=== PATIENT | female | born 1960 | race Caucasian/White ===

== ENCOUNTER 2022-08-28 07:44 | Outpatient (CLI) | payer OTHER, SELFPAY ==
--- NOTE | ~2022-08-28 | DEXA_ITS ---
Bone Density Report Name: SATINDER COSTELLO Age: 61 Sex: Female Ethnicity: White Date of : 1960 Indication: postmenopausal; screening for osteoporosis; Referring Provider: RYAN PARKER Study: Bone densitometry was performed. Exam Date: August 28, 2022 Accession number: [id number] Bone Density: Region BMD T-score Z-score Classification AP Spine(L1-L4) 0.933 -1.0 0.3 Normal Femoral Neck (Left) 0.723 -1.1 0.1 Osteopenia Total Hip (Left) 0.968 0.2 1.1 Normal Femoral Neck (Right) 0.727 -1.1 0.2 Osteopenia Total Hip (Right) 0.962 0.2 1.1 Normal Total Hip Mean 0.965 0.2 1.1 Normal World Health Organization criteria for BMD impression classify patients as: Normal (T-score at or above -1.0), Osteopenia (T-score between -1.0 and -2.5), or Osteoporosis (T-score at or below -2.5). 10-year Fracture Risk(1): Major Osteoporotic Fracture 6.4% Hip Fracture 0.4% Reported Risk Factors: [place] (), Neck BMD=0.723, BMI=38.4 (1) FRAX(R) Version 3.08. Fracture probability calculated for an untreated patient. Fracture probability may be lower if the patient has received treatment. Clinical Information Provided by Patient: Patient maximum height was 62.5 Menopause Age: 52 No regular weight bearing exercise Onset of menses at age 12 Number of children 2 Impression: The patient has low bone mass, based on the Left Femoral Neck T-score. The patient has an estimated ten-year risk of hip fracture of 0.4% and an estimated ten-year risk of major fracture of 6.4%, based on the WHO FRAX algorithm. Discussion: BONE DENSITY IS LOW AT ONE OR MORE SKELETAL SITES. This patient's lowest T-score is low at one or more skeletal sites. It meets the World Health Organization's (WHO) criteria for ?low bone mass? (T-score between -1.0 and -2.5). The patient's 10-year risk of fracture as calculated by FRAX is less than the threshold where pharmacological therapy is recommended by the National Osteoporosis Foundation (NOF). However, all treatment decisions require clinical judgment and consideration of individual patient factors, including patient preferences, comorbidities, previous drug use, risk factors not captured in the FRAX model (e.g., frailty, falls, vitamin D deficiency, increased bone turnover, interval significant decline in bone density) and possible under or overestimation of fracture risk by FRAX. The patient should follow a healthful lifestyle (good nutrition with adequate calcium and vitamin D, and appropriate weight-bearing exercise). Follow-Up: Consider repeating this study in 2 to 3 years to reassess this patient's status, or sooner if there is some new clinical indication. Reported by: GODFREY on 08/28/2022 8:18:00 AM. Reviewed, d
--- NOTE | ~2022-08-28 | MM_ITS ---
EXAMINATION: MM screening mary BI w [facility] HISTORY: Screening mammogram TECHNIQUE: Craniocaudal and mediolateral oblique 3-D tomosynthesis images were obtained and synthetic 2-D images were generated. CAD analysis was submitted and interpreted. COMPARISON: 07/25/2017 bilateral screening mammogram 06/14/2015 diagnostic right mammogram 06/05/2015 bilateral screening mammogram BREAST PARENCHYMAL COMPOSITION: There are scattered areas of fibroglandular density. FINDINGS: There is no evidence of suspicious mass, calcification, or architectural distortion to sugg est malignancy in either breast. There has been no suspicious interval change. IMPRESSION: 1. No mammographic evidence of malignancy. 2. Recommend routine screening mammography in one year. BI-RADS Category 1: Negative Reviewed, dictated and finalized at location A. AL ERECTOR
== END 2022-08-28 07:45 | disposition home or self-care (01) ==
LOC: ANHIMG 07:47
PROVIDERS: PCP Family Medicine; Visit Provider Physician Assistant
DX: Z12.31 Encounter for screening mammogram for malignant neoplasm of breast (principal); Z78.0 Asymptomatic menopausal state; M85.852 Other specified disorders of bone density and structure, left thigh; M85.851 Other specified disorders of bone density and structure, right thigh
CPT/HCPCS: 77063; 77067; 77080

== ENCOUNTER 2023-06-13 03:08 | Day surgery (SDC) | payer OTHER, SELFPAY ==
[2023-05-28 12:37] VITALS: BMI 35.5
--- NOTE | 2023-06-11 10:15 | SUR.PREOP ---
Patient called regarding upcoming procedure. Reviewed preop instructions, appointment times, and procedure prep.
[2023-06-13 06:16] VITALS: BP 156/88; PULSE 88; RESP 20; TEMP 36.1; O2SAT 97
[2023-06-13] MEDS: LACTATED RINGERS 1,000 ML 150 ML IV CONT (06:26)
--- NOTE | 2023-06-13 07:28 | WPDANESEPPF ---
Anes - Initial Pre Proc Eval Procedure: Operation Date: 06/13/23 07:30 Proposed Procedures p Colonoscopy - Suresh Sin MD Date/Time: 06/13/23 07:28 Surgeon: Suresh Sin MD Pre Op Diagnosis: Other fecal abnormalities; + cologuard Patient Data Age: 62 Gender: F Height: 1.6 m Weight: 90 kg Last Vital Signs Temp 97 F L 06/13/23 06:16 Pulse 88 06/13/23 06:16 Resp 20 06/13/23 06:16 BP 156/88 H 06/13/23 06:16 Pulse Ox 97 06/13/23 06:16 O2 Del Method Room Air 06/13/23 06:16 Allergies Allergy/AdvReac Type Severity Reaction Status Date / Time nickel Allergy Unknown RASH Verified 06/13/23 06:15 clarithromycin AdvReac Intermediate Diarrhea Verified 06/13/23 06:15 Home Medications Medication Instructions Recorded Confirmed Type alprazolam 0.5 mg tablet 0.5 mg PO BID PRN anxiety #30 tabs 04/26/22 05/28/23 Rx lisinopril 20 See Rx Instructions .Route 10/01/22 05/28/23 Rx mg-hydrochlorothiazide 12.5 mg .COMPLEX #90 tabs tablet cyclobenzaprine 5 mg tablet 5 mg PO TID PRN muscle spasm #30 12/10/22 05/28/23 Rx tabs fluticasone propionate 50 2 spray intranasal DAILY #48 mL 12/10/22 05/28/23 Rx mcg/actuation nasal spray,suspension amlodipine 2.5 mg tablet 2.5 mg PO DAILY #90 tabs 01/08/23 05/28/23 Rx escitalopram oxalate 5 mg tablet 5 mg PO DAILY #90 tabs 01/10/23 05/28/23 Rx (Lexapro) pantoprazole 40 mg tablet,delayed See Rx Instructions .Route 02/27/23 05/28/23 Rx release .COMPLEX #90 tabs calcium-vitamin D3-vitamin K 500 1 tablet PO DAILY 05/28/23 05/28/23 History mg-100 unit-40 mcg chewable tablet meloxicam 15 mg tablet 15 mg PO DAILY PRN Pain 05/28/23 05/28/23 History multivitamin k-[id number]-[id number] 1 tablet PO DAILY 05/28/23 05/28/23 History fumarate 18 mg-vitamin K 25 mcg tablet naltrexone 8 mg-bupropion 90 mg 2 tablet PO BID 05/28/23 05/28/23 History tablet,extended release (Contrave) omega-3 fatty acids-vitamin E 1 cap PO DAILY 05/28/23 05/28/23 History 1,000 mg capsule potassium 99 mg tablet 99 mg PO DAILY 05/28/23 05/28/23 History naltrexone 8 mg-bupropion 90 mg See Rx Instructions .Route 06/02/23 Rx tablet,extended release (Contrave) .COMPLEX #120 tabs Patient hx anesthesia problems: none Family hx anesthesia problems: none Results Review: All pre-operative results and documents have been reviewed as part of the pre-operative evaluation. [facility] Past Medical History Medical History (Updated 04/21/23 @ 16:15 by Jessica De La O PA-C) Anxiety Depression Hypertension Positive colorectal cancer screening using Cologuard test Family History Family History Mother Family history of hypercholesterolemia Hypertension Cerebrovascular accident Family history of malignant neoplasm Social History Social History Smoking status: Never smoker Second hand tobacco smoke exposure: No Alcohol intake: never Substance use: never Substance use type: does not use Lack of Transportation: No Lack of Food: Never True Current Housing: I Have Housing Concerned About Future Housing: No Difficulty Paying Gas/Electric Bills: No Difficulty Paying for Meds: No Currently Unemployed: No Education: Associate Degree Difficulty w/ Childcare or Family Care: No Living arrangements: with family Occupation/Education: occupation Gender identity (if verbalized by the patient): Female Spiritual care concerns: No Agree to blood products: Yes Anes - Eval Final PreProcedure Day of Procedure 06/13/23 07:28 Patient weight: obese Heart: regular rate and rhythm Lungs: clear to auscultation Airway: Mallampati scale class II Neurological: alert and oriented Last oral intake: >/= 8 hours ASA classification: III Emergent: no Anesthetic plan: proceed Anesthesia type and monitori
--- NOTE | 2023-06-13 07:36 | PM.HPGS ---
History of Present Illness History of Present Illness Consent: Risks, benefits, and alternatives have been discussed and questions answered. Patient agrees to proceed with procedure. Chief complaint: Other fecal abnormalities; + cologuard Narrative: Sherrell Carpio is a 62 year old female here for positive cologuard, last colonoscopy 10 years ago Review of Systems Constitutional: Constitutional: Denies headache(s) and Denies weakness Eyes: Eyes: Denies blurry vision ENT: Reports Normal hearing present, Denies headache(s) and Denies neck pain Cardiovascular: Cardiovascular: Denies chest pain and Denies dyspnea Respiratory: Respiratory: Denies dyspnea Gastrointestinal: Gastrointestinal: Reports no additional gastrointestinal complaints Genitourinary: Genitourinary: Denies dysuria Musculoskeletal: Musculoskeletal: Denies neck pain Integumentary/Breasts: Skin/Breast: Denies dry skin Neurologic: Reports Normal hearing present, Denies headache(s) and Denies weakness Psychiatric: Psychiatric: Denies anxiety Endocrine: Endocrine: Denies change in body appearance Hematologic/Lymphatic: Hematologic/Lymphatic: Denies easy bleeding Allergic/Immunologic: Allergic/Immunologic: Denies urticaria PMF Past Medical History Medical History (Updated 04/21/23 @ 16:15 by Jessica De La O PA-C) Anxiety Depression Hypertension Positive colorectal cancer screening using Cologuard test Family History Family History Mother Family history of hypercholesterolemia Hypertension Cerebrovascular accident Family history of malignant neoplasm Social History Social History Smoking status: Never smoker Second hand tobacco smoke exposure: No Alcohol intake: never Substance use: never Substance use type: does not use Lack of Transportation: No Lack of Food: Never True Current Housing: I Have Housing Concerned About Future Housing: No Difficulty Paying Gas/Electric Bills: No Difficulty Paying for Meds: No Currently Unemployed: No Education: Associate Degree Difficulty w/ Childcare or Family Care: No Living arrangements: with family Occupation/Education: occupation Gender identity (if verbalized by the patient): Female Spiritual care concerns: No Agree to blood products: Yes Meds Home Medications and Allergies Home Medications Medication Instructions Recorded Confirmed Type alprazolam 0.5 mg tablet 0.5 mg PO BID PRN anxiety #30 tabs 04/26/22 05/28/23 Rx lisinopril 20 See Rx Instructions .Route 10/01/22 05/28/23 Rx mg-hydrochlorothiazide 12.5 mg .COMPLEX #90 tabs tablet cyclobenzaprine 5 mg tablet 5 mg PO TID PRN muscle spasm #30 12/10/22 05/28/23 Rx tabs fluticasone propionate 50 2 spray intranasal DAILY #48 mL 12/10/22 05/28/23 Rx mcg/actuation nasal spray,suspension amlodipine 2.5 mg tablet 2.5 mg PO DAILY #90 tabs 01/08/23 05/28/23 Rx escitalopram oxalate 5 mg tablet 5 mg PO DAILY #90 tabs 01/10/23 05/28/23 Rx (Lexapro) pantoprazole 40 mg tablet,delayed See Rx Instructions .Route 02/27/23 05/28/23 Rx release .COMPLEX #90 tabs calcium-vitamin D3-vitamin K 500 1 tablet PO DAILY 05/28/23 05/28/23 History mg-100 unit-40 mcg chewable tablet meloxicam 15 mg tablet 15 mg PO DAILY PRN Pain 05/28/23 05/28/23 History multivitamin [id number]-ebodczwb-iwkupta 1 tablet PO DAILY 05/28/23 05/28/23 History fumarate 18 mg-vitamin K 25 mcg tablet naltrexone 8 mg-bupropion 90 mg 2 tablet PO BID 05/28/23 05/28/23 History tablet,extended release (Contrave) omega-3 fatty acids-vitamin E 1 cap PO DAILY 05/28/23 05/28/23 History 1,000 mg capsule potassium 99 mg tablet 99 mg PO DAILY 05/28/23 05/28/23 History naltrexone 8 mg-bupropion 90 mg See Rx Instructions .Route 06/02/23 Rx tablet,extended release (Contrave) .COMPLEX #120 tabs Allergies A
[2023-06-13 07:54] VITALS: BP 107/72; PULSE 68; RESP 18; O2SAT 98
[2023-06-13 08:04] VITALS: BP 124/71; PULSE 65; RESP 20; O2SAT 96
[2023-06-13 08:14] VITALS: BP 119/86; PULSE 67; RESP 19; O2SAT 97
== END 2023-06-13 08:25 | disposition home or self-care (01) ==
PROVIDERS: PCP Family Medicine; Visit Provider Internal Medicine Gastroenterology
PROC: 0DJD8ZZ Inspection of Lower Intestinal Tract, Via Natural or Artificial Opening Endoscopic (ICD-10-PCS; CPT 45378; principal; 2023-06-13 07:30)
DX: R19.5 Other fecal abnormalities (principal); K57.30 Diverticulosis of large intestine without perforation or abscess without bleeding; K64.8 Other hemorrhoids; I10 Essential (primary) hypertension; F41.9 Anxiety disorder, unspecified; F32.A Depression, unspecified; E66.9 Obesity, unspecified; Z68.35 Body mass index [BMI] 35.0-35.9, adult
CPT/HCPCS: 45378; J2704; J7120

== ENCOUNTER 2024-04-06 08:04 | Outpatient (CLI) | payer OTHER, SELFPAY ==
--- NOTE | ~2024-04-06 | MM_ITS ---
EXAMINATION: MM screening mary BI w [facility] HISTORY: Screening TECHNIQUE: Craniocaudal and mediolateral oblique 3-D tomosynthesis images were obtained and synthetic 2-D images were generated. CAD analysis was submitted and interpreted. COMPARISON: Comparison to multiple prior studies sequentially, with oldest reviewed study dated 05/09. BREAST PARENCHYMAL COMPOSITION: There are scattered areas of fibroglandular density. FINDINGS: There is no evidence of suspicious mass, calcification, or architectural distortion to sugg est malignancy in either breast. There has been no suspicious interval change. IMPRESSION: 1. No mammographic evidence of malignancy. 2. Recommend routine screening mammography in one year. BI-RADS Category 1: Negative Reviewed, dictated and finalized at location B.
== END 2024-04-06 08:05 | disposition home or self-care (01) ==
PROVIDERS: PCP Family Medicine; Visit Provider Family Medicine
DX: Z12.31 Encounter for screening mammogram for malignant neoplasm of breast (principal)
CPT/HCPCS: 77063; 77067